=== PATIENT | female | born 2005 ===

== ENCOUNTER 2024-10-12 12:09 | Outpatient (CLI) | payer SELFPAY ==
[2024-10-12] VITALS (21 sets, daily range): BP systolic 105–124; BP diastolic 50–78; PULSE 57–109
== END 2024-10-12 23:59 | disposition home or self-care (01) ==
LOC: CARD DIAG 12:09
PROVIDERS: ATTEND Internal Medicine Interventional Cardiology
DX: R42 Dizziness and giddiness (principal); R06.02 Shortness of breath
CPT/HCPCS: 93660